=== PATIENT | male | born 1985 | race Hispanic/Latino ===

== ENCOUNTER 2018-09-30 22:54 | Emergency (ER) | payer SELFPAY ==
--- NOTE | 2018-09-30 23:27 | RAD ---
XR Hand Rt 3 View STANDARD HISTORY: Fall, right hand pain COMPARISON: None. FINDINGS: There is a comminuted fracture involving the distal radius with fracture line extending to the articular surface. An avulsion fracture of the ulnar styloid is seen. IMPRESSION: Fractures of the distal radius and ulna
== END 2018-10-01 01:02 | disposition home or self-care (01) ==
LOC: ERS 22:54
DX: S52.501A Unspecified fracture of the lower end of right radius, initial encounter for closed fracture (principal); S52.611A Displaced fracture of right ulna styloid process, initial encounter for closed fracture; W11.XXXA Fall on and from ladder, initial encounter